=== PATIENT | male | born 1970 | race Caucasian/White ===

== ENCOUNTER 2017-04-21 08:50 | Emergency (ER) | payer BC, SELFPAY ==
[2017-04-21 09:13] VITALS: BP 124/90; PULSE 87; RESP 18; TEMP 36.9; O2SAT 98; BMI 29.0
--- NOTE | 2017-04-21 09:23 | HMH.EDUTC ---
[facility] [place] Clinical Impression: Gastroenteritis Disposition: Home, Self-Care Condition on Discharge: Fair Instructions: DI for Nausea -- Adult, Diarrhea, DI for Viral Gastroenteritis -- Adult Additional Instructions: Drink plenty of fluids Follow up with family doctor Return if needed Over the counter Immodium may help if diarrhea doesn't stop Take medication as prescribed Prescriptions: Ondansetron [Zofran 4mg ODT] 4 mg PO Q8H #10 tab.rapdis Referrals: Patricio Burgos MD [Primary Care Provider] - Time of Disposition: 09:46 Medical Decision Making - Medical Records Medical records reviewed: Yes: I reviewed the patient's medical records. Vital Signs: 04/21/17 09:13 Temperature 98.4 F Temperature Source Temporal Artery Scan Pulse Rate [Right] 87 Respiratory Rate 18 Blood Pressure [Right Arm] 124/90 Blood Pressure Mean [Right Arm] 101 Blood Pressure Source [Right Arm] Automatic Cuff Blood Pressure Position [Right Arm] Sitting 02 Sat by Pulse Oximetry 98 Oxygen Delivery Method Room Air - Beau Inquiry Pt receiving controlled substance: No Beau was queried for this patient: No [facility] [place] - General Stated complaint: rincon v/d chills Mode of Arrival: Ambulatory Source of Information: Patient Limitations: No Limitations Description of Symptoms (Recalled from Triage Doc. by RN): V/D, BODY ACHES X3 DAYS HEENT Symptoms (Recalled from RN notes): No Resp Symptoms (Recalled from RN notes): No Skin Symptoms (Recalled from RN notes): No MS Symptoms (Recalled from RN notes): No Functional Status (Recalled from RN notes): N - History of Present Illness Provider Complaint: Patient state that he has been having nausea vomiting and diarrhea State that at times he feels like something is draining down the back of his throat and upseting his stomach, State that he was worried that he may have the flu or something - Related Data Previous Rx's Medication Instructions Recorded Ondansetron [Zofran 4mg ODT] 4 mg PO Q8H #10 tab.rapdis 04/21/17 Allergies Allergy/AdvReac Type Severity Reaction Status Date / Time bupropion [From WELLBUTRIN] Allergy Mild Verified 04/21/17 09:17 - Worker's Comp Is this a Worker's Comp case?: No [facility] History I have reviewed the patient's past medical history: Yes - *Social History Alcohol Intake: never - Psychiatric History Expresses thoughts of harming self/others: None Suicide Plan Description: No Plan ROS Obtained: Yes All systems reviewed & no additional complaints - Constitutional Constitutional: Reports body ache, Reports chills - ENT Ears, Nose, Mouth, and Throat: Reports nasal congestion - Gastrointestinal Gastrointestingal: Reports: diarrhea, nausea, vomiting Physical Exam - General General appearance: alert, in no apparent distress - Expanded ENT Exam Nose exam: Present: sinus tenderness, other (slight tenderness noted frontal sinus) Nasal speculum exam: Bilateral: other (Reports clear to yellow drainage) Comment: Throat red irritated drainage noted, reports clear to yellow drainage from nose - Respiratory Respiratory exam: Present: normal lung sounds bilaterally. Absent: respiratory distress - Cardiovascular Cardiovascular exam: Present: regular rate, normal rhythm. Absent: JVD - Abdominal Exam Abdominal exam: Present: soft, normal bowel sounds. Absent: distention, tenderness, guarding - Neurological Exam Neurological exam: Present: alert, oriented X3
--- NOTE | 2017-04-21 09:36 | ED_ITS ---
[facility] [place] Impression: Gastroenteritis Disposition: Home, Self-Care Condition on Discharge: Fair Instructions: DI for Nausea -- Adult, Diarrhea, DI for Viral Gastroenteritis - - Adult Additional Instructions: Drink plenty of fluids Follow up with family doctor Return if needed Over the counter Immodium may help if diarrhea doesn't stop Take medication as prescribed Prescriptions: Ondansetron [Zofran 4mg ODT] 4 mg PO Q8H #10 tab.rapdis Referrals: Patricio Burgos MD [Primary Care Provider] - Time of Disposition: 09:46 Medical Decision Making - Medical Records Medical records reviewed: Yes: I reviewed the patient's medical records. Vital Signs: 04/21/17 09:13 Temperature 98.4 F Temperature Source Temporal Artery Scan Pulse Rate [Right] 87 Respiratory Rate 18 Blood Pressure [Right Arm] 124/90 Blood Pressure Mean [Right Arm] 101 Blood Pressure Source [Right Arm] Automatic Cuff Blood Pressure Position [Right Arm] Sitting 02 Sat by Pulse Oximetry 98 Oxygen Delivery Method Room Air - Beau Inquiry Pt receiving controlled substance: No Beau was queried for this patient: No [facility] [place] - General Stated complaint: rincon v/d chills Mode of Arrival: Ambulatory Source of Information: Patient Limitations: No Limitations Description of Symptoms (Recalled from Triage Doc. by RN): V/D, BODY ACHES X3 DAYS HEENT Symptoms (Recalled from RN notes): No Resp Symptoms (Recalled from RN notes): No Skin Symptoms (Recalled from RN notes): No MS Symptoms (Recalled from RN notes): No Functional Status (Recalled from RN notes): N - History of Present Illness Provider Complaint: Patient state that he has been having nausea vomiting and diarrhea State that at times he feels like something is draining down the back of his throat and upseting his stomach, State that he was worried that he may have the flu or something - Related Data Previous Rx's Medication Instructions Recorded Ondansetron [Zofran 4mg ODT] 4 mg PO Q8H #10 tab.rapdis 04/21/17 Allergies Allergy/AdvReac Type Severity Reaction Status Date / Time bupropion [From WELLBUTRIN] Allergy Mild Verified 04/21/17 09:17 - Worker's Comp Is this a Worker's Comp case?: No [facility] History I have reviewed the patient's past medical history: Yes - *Social History Alcohol Intake: never - Psychiatric History Expresses thoughts of harming self/others: None Suicide Plan Description: No Plan ROS Obtained: Yes All systems reviewed & no additional complaints - Constitutional Constitutional: Reports body ache, Reports chills - ENT Ears, Nose, Mouth, and Throat: Reports nasal congestion - Gastrointestinal Gastrointestingal: Reports: diarrhea, nausea, vomiting Physical Exam - General General appearance: alert, in no apparent distress - Expanded ENT Exam Nose exam: Present: sinus tenderness, other (slight tenderness noted frontal sinus) Nasal speculum exam: Bilateral: other (Reports clear to yellow drainage) Comment: Throat red irritated drainage noted, reports clear to yellow drainage from nose - Respiratory Respiratory exam: Present: normal lung sounds bilaterally. Absent: respiratory distress - Cardiovascular Cardiovascular exam: Present: regular rate, normal rhythm. Absent: JVD - Ab
[2017-04-21 09:44] LABS: UTC Influenza A Antigen Negative (Negative); UTC Influenza B Antigen Negative (Negative)
[2017-04-21 09:56] VITALS: BP 124/90; PULSE 87; RESP 18; TEMP 36.9
== END 2017-04-21 09:57 | disposition home or self-care (01) ==
PROVIDERS: Emergency Provider Nurse Practitioner; Family Provider Internal Medicine Adolescent Medicine; PCP Internal Medicine Adolescent Medicine
DX: K52.9 Noninfective gastroenteritis and colitis, unspecified (principal)
CPT/HCPCS: 87804; 99202

== ENCOUNTER 2017-05-17 09:32 | Emergency (ER) | payer BC, SELFPAY ==
[2017-05-17 09:46] VITALS: BP 135/96; PULSE 74; RESP 20; TEMP 37.1; O2SAT 98; BMI 29.8
--- NOTE | 2017-05-17 09:55 | HMH.EDUTC ---
[facility] – [place] Disposition Clinical Impression: Headache Qualifiers: Headache type: other headache syndrome Qualified Code(s): G44.89 - Other headache syndrome Disposition: Home, Self-Care Condition on Discharge: Good Additional Instructions: Increase fluids,eliceo diet Wrist Get a refill of your cetirizine Tylenol or ibuprofen as needed for headache Symptoms worsen or do not improve return or be seen in the ER Follow-up with primary care this week if symptoms do not improve Referrals: Patricio Burgos MD [Primary Care Provider] - Forms: Work/School Release Time of Disposition: 10:01 Medical Decision Making Vital Signs: 05/17/17 09:46 Temperature 98.8 F Temperature Source Temporal Artery Scan Pulse Rate [Brachial] 74 Respiratory Rate 20 Blood Pressure [Right Arm] 135/96 Blood Pressure Mean [Right Arm] 109 Blood Pressure Source [Right Arm] Automatic Cuff Blood Pressure Position [Right Arm] Sitting 02 Sat by Pulse Oximetry 98 Oxygen Delivery Method Room Air - Beau Inquiry Pt receiving controlled substance: No [facility] [place] HPI - General Chief complaint: Headache Stated complaint: rincon vomiting mucus Time Seen by Provider: 05/17/17 09:55 Mode of Arrival: EMS Source of Information: Patient Limitations: No Limitations Description of Symptoms (Recalled from Triage Doc. by RN): ALLERGIES, V/H/A HEENT Symptoms (Recalled from RN notes): Yes Resp Symptoms (Recalled from RN notes): No Skin Symptoms (Recalled from RN notes): No MS Symptoms (Recalled from RN notes): No Functional Status (Recalled from RN notes): NA - History of Present Illness Provider Complaint: A 46-year-old male presents today for headache, vomiting ?2 today. Patient states he normally takes cetirizine but they fell out of the cabinet and went down the sink. Patient states he has history of allergies and woke up today with a headache and has vomited up clear mucus twice today. Called into work and was informed he had to be seen at the [facility]. - Related Data Previous Rx's Medication Instructions Recorded Ondansetron [Zofran 4mg ODT] 4 mg PO Q8H #10 tab.rapdis 04/21/17 Allergies Allergy/AdvReac Type Severity Reaction Status Date / Time bupropion [From WELLBUTRIN] Allergy Mild Verified 04/21/17 09:17 - Worker's Comp Is this a Worker's Comp case?: No [facility] History I have reviewed the patient's past medical history: Yes - Social History Alcohol Intake: never - Psychiatric History Expresses thoughts of harming self/others: None Suicide Plan Description: No Plan ROS Obtained: Yes All systems reviewed & no additional complaints - Constitutional Constitutional: Reports as per HPI, Denies chills, Denies fever(s), Reports headache(s) - Eyes Eyes: Reports system reviewed and no additional complaints, except as docu - ENT Ears, Nose, Mouth, and Throat: Reports system reviewed and no additional complaints, except as docu, Reports headache(s), Denies nasal obstruction, Reports post nasal drip, Denies sinus pressure, Denies sore throat, Denies vertigo/dizziness - Cardiovascular Cardiovascular: Reports system reviewed and no additional complaints, except as docu, Denies chest pain with activity - Respiratory Respiratory: Yes system reviewed and no additional complaints, except as docu, No chest congestion, No cough - Gastrointestinal Gastrointestingal: Reports: system reviewed and no additional complaints, except as docu, as per HPI, vomiting. Denies: coffee ground emesis, heartburn, vomiting blood - Musculoskeletal Musculoskeletal: Reports system reviewed and no additional complaints, except as docu - Integumentary/Breasts Skin/Breast: Reports system reviewed and no additional complaints, except as docu - Neurologic Neurologic: Reports system reviewed and no additional complaints, except as docu, Denies tingling, Denies vertigo, Denies weakness - Endocrine Endocrine: Reports system reviewed and no additional complaints, ex
--- NOTE | 2017-05-17 09:58 | ED_ITS ---
[facility] [place] Clinical Impression: Headache Qualifiers: Headache type: other headache syndrome Qualified Code(s): G44.89 - Other headache syndrome Disposition: Home, Self-Care Condition on Discharge: Good Additional Instructions: Increase fluids,eliceo diet Wrist Get a refill of your cetirizine Tylenol or ibuprofen as needed for headache Symptoms worsen or do not improve return or be seen in the ER Follow-up with primary care this week if symptoms do not improve Referrals: Patricio Burgos MD [Primary Care Provider] - Forms: Work/School Release Time of Disposition: 10:01 Medical Decision Making Vital Signs: 05/17/17 09:46 Temperature 98.8 F Temperature Source Temporal Artery Scan Pulse Rate [Brachial] 74 Respiratory Rate 20 Blood Pressure [Right Arm] 135/96 Blood Pressure Mean [Right Arm] 109 Blood Pressure Source [Right Arm] Automatic Cuff Blood Pressure Position [Right Arm] Sitting 02 Sat by Pulse Oximetry 98 Oxygen Delivery Method Room Air - Beau Inquiry Pt receiving controlled substance: No [facility] [place] - General Chief complaint: Headache Stated complaint: rincon vomiting mucus Time Seen by Provider: 05/17/17 09:55 Mode of Arrival: EMS Source of Information: Patient Limitations: No Limitations Description of Symptoms (Recalled from Triage Doc. by RN): ALLERGIES, V/H/A HEENT Symptoms (Recalled from RN notes): Yes Resp Symptoms (Recalled from RN notes): No Skin Symptoms (Recalled from RN notes): No MS Symptoms (Recalled from RN notes): No Functional Status (Recalled from RN notes): NA - History of Present Illness Provider Complaint: A 46-year-old male presents today for headache, vomiting ?2 today. Patient states he normally takes cetirizine but they fell out of the cabinet and went down the sink. Patient states he has history of allergies and woke up today with a headache and has vomited up clear mucus twice today. Called into work and was informed he had to be seen at the [facility]. - Related Data Previous Rx's Medication Instructions Recorded Ondansetron [Zofran 4mg ODT] 4 mg PO Q8H #10 tab.rapdis 04/21/17 Allergies Allergy/AdvReac Type Severity Reaction Status Date / Time bupropion [From WELLBUTRIN] Allergy Mild Verified 04/21/17 09:17 - Worker's Comp Is this a Worker's Comp case?: No [facility] History I have reviewed the patient's past medical history: Yes - Social History Alcohol Intake: never - Psychiatric History Expresses thoughts of harming self/others: None Suicide Plan Description: No Plan ROS Obtained: Yes All systems reviewed & no additional complaints - Constitutional Constitutional: Reports as per HPI, Denies chills, Denies fever(s), Reports headache(s) - Eyes Eyes: Reports system reviewed and no additional complaints, except as docu - ENT Ears, Nose, Mouth, and Throat: Reports system reviewed and no additional complaints, except as docu, Reports headache(s), Denies nasal obstruction, Reports post nasal drip, Denies sinus pressure, Denies sore throat, Denies vertigo/dizziness - Cardiovascular Cardiovascular: Reports system reviewed and no additional complaints, except as docu, Denies chest pain with activity - Respiratory Respiratory: Yes system reviewed and no additional complaints, except as docu, No chest congestion, No cough - Gastrointestinal
[2017-05-17 10:05] VITALS: BP 135/96; PULSE 74; RESP 20; TEMP 37.1; O2SAT 98
== END 2017-05-17 10:06 | disposition home or self-care (01) ==
PROVIDERS: Emergency Provider Nurse Practitioner Family; Family Provider Internal Medicine Adolescent Medicine; PCP Internal Medicine Adolescent Medicine
DX: G44.89 Other headache syndrome (principal); Z88.8 Allergy status to other drugs, medicaments and biological substances
CPT/HCPCS: 99202

== ENCOUNTER → 2019-03-09 16:33 | Outpatient (CLI) | payer BC, SELFPAY ==
[2019-03-09 16:54] LABS: Basophils # 0.1 K/mm3 (0-0.2); Basophils % 0.6 % (0.1-2.0); Eosinophils # 0.3 K/mm3 (0.0-0.4); Eosinophils % 2.8 % (0.1-12.0); Hemoglobin 15.1 g/dL (14.1-18.0); Lymphocytes # 2.2 K/mm3 (0.7-4.5); Lymphocytes % 18.5 % (10-50); Mean Corpuscular HGB Conc 32.8 g/dL (31.8-35.4); Mean Corpuscular Hemoglobin 29.9 pg (27.0-31.2); Mean Corpuscular Volume 91.1 fl (80-94); Monocytes # 0.5 K/mm3 (0.1-1.0); Monocytes % 4.3 % (1.7-9.3); Neutrophils # 8.8 K/mm3 (1.8-7.8); Neutrophils % 73.9 % (37.0-80.0); Platelet Count 305 K/mm3 (142-424); Red Blood Count 5.05 M/mm3 (4.60-6.20); Red Cell Distribution Width 12.9 % (11.5-17.5); White Blood Count 11.9 K/mm3 (4.8-10.8)
[2019-03-09 18:04] LABS: Hemoglobin A1C 5.9 % (0.0-7.0)
[2019-03-09 19:18] LABS: Alanine Aminotransferase 35 U/L (12-78); Albumin/Globulin Ratio 1.1 (1.1-1.8); Alkaline Phosphatase 115 U/L (46-116); Anion Gap 14.5 mEq/L (5-15); Aspartate Amino Transferase 19 U/L (15-37); Bilirubin,Total 0.3 mg/dL (0.2-1.0); Blood Urea Nitrogen 12 mg/dL (7-18); Calcium 10.2 mg/dL (8.5-10.1); Carbon Dioxide 31 mmol/L (21.0-32.0); Chloride 101 mmol/L (98-107); Estimated Glomerular Filt Rate 80 ml/min (>60); GFR (African American) 97 ML/MIN (>60); Globulin 3.7 gm/dl (1.3-3.2); Glucose 77 mg/dL (74-106); Potassium 4.5 mmoL/L (3.5-5.1); Sodium 142 mmol/L (136-145); Thyroid Stimulating Hormone 2.44 uIU/ml (0.358-3.740); Total Protein,Serum 7.7 gm/dL (6.4-8.2)
[2019-03-11 08:32] LABS: Iron 60 ug/dL (38-169); UIBC 319 ug/dL (111-343)
[2019-03-11 09:58] LABS: Iron Saturation 16 % (15-55); Vitamin B12 536 pg/mL (232-1245); Vitamin D 25 Hydroxy 10.4 ng/mL (30.0-100.0)
[2019-03-13 03:02] LABS: Testosterone, Total, LC/MS 214.2 ng/dL (264.0-916.0); Testosterone,Free 5.8 pg/mL (6.8-21.5)
== END ==
PROVIDERS: Visit Provider Nurse Practitioner Psychiatric/Mental Health
DX: Z00.00 Encounter for general adult medical examination without abnormal findings (principal); Z79.899 Other long term (current) drug therapy; R53.83 Other fatigue; E55.9 Vitamin D deficiency, unspecified
CPT/HCPCS: 36415; 80053; 82607; 82652; 83036; 83540; 83550; 84402; 84403; 84443; 85025

== ENCOUNTER → 2019-04-14 16:31 | Outpatient (CLI) | payer BC, SELFPAY ==
[2019-04-14 18:04] LABS: Blood Urea Nitrogen 16 mg/dL (7-18); Creatinine,Serum 1.03 mg/dL (0.70-1.30); Estimated Glomerular Filt Rate 77 ml/min (>60); GFR (African American) 94 ML/MIN (>60)
== END ==
PROVIDERS: Visit Provider Nurse Practitioner Family
DX: R10.32 Left lower quadrant pain (principal)
CPT/HCPCS: 36415; 82565; 84520

== ENCOUNTER → 2019-04-18 12:21 | Outpatient (CLI) | payer BC, SELFPAY ==
--- NOTE | 2019-04-18 12:32 | CT_ITS ---
PROCEDURE: CT ABDOMEN PELVIS WO/W CON CLINICAL INDICATION: LLQ PAIN Lower abdominal pain, left lower quadrant pain COMPARISON: ABDPELW/O CT ABD PELVIS W/O CONTRAST from 06/20/2012 TECHNIQUE: IV Contrast: 75ML OPTIRAY 350 Oral Contrast 450ml Redicat Axial images obtained with sagittal and coronal reformats. All CT scans at the facility use one or more dose reduction, viz: automated exposure control, ma/kV adjustment per patient size (including targeted exams where dose is matched to indication, i.e. head), or iterative reconstruction technique. FINDINGS: LOWER THORAX: Mild atelectatic changes are present in the right lower lobe. Coronary artery calcifications present. ABDOMEN & PELVIS: There is diffuse fatty liver infiltration. The the gallbladder, spleen, adrenal glands, and pancreas have an unremarkable appearance. There is a small umbilical hernia containing. No evidence of appendicitis. No intestinal obstruction or free air. No renal or ureteral calculi. There is diverticulosis of the descending colon but no evidence of diverticulitis. Postsurgical changes are present in the left lower quadrant with surgical clips and some minimal scarring in this area. No abdominal wall hernia evident at this region. There are couple small lymph nodes in this region at approximately 1 cm each. No pelvic mass or abnormal fluid collection. There are degenerative changes in lumbar spine. IMPRESSION: 1. No acute finding. 2. Postsurgical changes in the left lower quadrant and in the left inguinal area with a couple small lymph nodes in the inguinal region on the left. 3. Small umbilical hernia containing fat. The no recurrence inguinal hernia evident. Dictated by: Ej Tran MD 04/19/2019 11:10 Electronically signed by Ej Tran MD in [place] 04/19/2019 11:10
== END ==
LOC: RAD 12:22
PROVIDERS: PCP Internal Medicine Adolescent Medicine; Visit Provider Internal Medicine Adolescent Medicine
DX: R10.32 Left lower quadrant pain (principal)
CPT/HCPCS: 74178; Q9967

== ENCOUNTER → 2019-07-03 13:35 | Outpatient (CLI) | payer BC, SELFPAY ==
--- NOTE | 2019-07-03 13:42 | XR_ITS ---
PROCEDURE: XR KNEE LT 4V CLINICAL INDICATION: knee pain COMPARISON: No exams were available for comparison FINDINGS: No fracture or dislocation. No lytic or blastic change. There is normal mineralization. There are minimal osteoarthritic changes involving all 3 compartments. No fracture or dislocation. No lytic or blastic change. Other findings:None. IMPRESSION: Minimal osteoarthritis Dictated by: Ej Tran MD 07/03/2019 14:21 Electronically signed by Ej Tran MD in [place] 07/03/2019 14:21
== END ==
LOC: RAD 13:37
PROVIDERS: PCP Nurse Practitioner Family; Visit Provider Orthopaedic Surgery
DX: M25.562 Pain in left knee (principal)
CPT/HCPCS: 73564

== ENCOUNTER → 2019-07-07 10:56 | Outpatient (CLI) | payer BC, SELFPAY ==
--- NOTE | 2019-07-07 10:56 | MR_ITS ---
PROCEDURE: MR KNEE LT WO CON CLINICAL INDICATION: left knee pain Posterior left knee pain, twisting injury with pain and popping noise, lateral pain COMPARISON: XR KNEE LT 4V from 07/03/2019 TECHNIQUE: Routine multiplanar multi echo sequences are performed without gadolinium enhancement. FINDINGS: the cruciate ligaments appear intact as do the collateral ligaments, patellar tendon, and quadriceps tendon. There does appear to be a radial tear of the posterior horn of the medial meniscus. This is along the lateral margin of the posterior horn of the medial meniscus and is best seen on series 12, image 22. There is also some bone marrow edema of the proximal tibia at this area consistent with bone bruise. There is a small knee joint effusion and there are mild osteoarthritic changes of all 3 compartments. There is some mild thinning of the patellar cartilage. IMPRESSION: There does appear to be a nondisplaced radial tear involving the posterior horn of the medial meniscus along its lateral margin associated with a bone bruise of the proximal tibia at this region. Mild osteoarthritis with small knee joint effusion Dictated by: Ej Tran MD 07/07/2019 15:20 Electronically signed by Ej Tran MD in [place] 07/07/2019 15:20
== END ==
LOC: RAD 10:56
PROVIDERS: PCP Nurse Practitioner Family; Visit Provider Orthopaedic Surgery
DX: M25.562 Pain in left knee (principal)
CPT/HCPCS: 73721

== ENCOUNTER → 2019-07-10 15:03 | Outpatient (CLI) | payer BC, SELFPAY ==
[2019-07-10 15:25] LABS: Basophils # 0.1 K/mm3 (0-0.2); Basophils % 1.1 % (0.1-2.0); Eosinophils # 0.1 K/mm3 (0.0-0.4); Eosinophils % 1.8 % (0.1-12.0); Hematocrit 45.2 % (42.0-52.0); Hemoglobin 14.6 g/dL (14.1-18.0); Lymphocytes # 1.3 K/mm3 (0.7-4.5); Lymphocytes % 17.5 % (10-50); Mean Corpuscular HGB Conc 32.3 g/dL (31.8-35.4); Mean Corpuscular Hemoglobin 29.1 pg (27.0-31.2); Mean Corpuscular Volume 90.3 fl (80-94); Mean Platelet Volume 7.1 fl (7.4-10.4); Monocytes # 0.3 K/mm3 (0.1-1.0); Monocytes % 3.3 % (1.7-9.3); Neutrophils # 5.9 K/mm3 (1.8-7.8); Neutrophils % 76.4 % (37.0-80.0); Platelet Count 307 K/mm3 (142-424); Red Blood Count 5.01 M/mm3 (4.60-6.20); Red Cell Distribution Width 13.5 % (11.5-17.5); White Blood Count 7.7 K/mm3 (4.8-10.8)
[2019-07-10 16:48] LABS: Chloride 98 mmol/L (98-107); Potassium 4.4 mmoL/L (3.5-5.1); Sodium 139 mmol/L (136-145)
[2019-07-10 16:51] LABS: Alanine Aminotransferase 28 U/L (12-78); Albumin Level 4.5 g/dl (3.5-5.0); Albumin/Globulin Ratio 1.5 (1.1-1.8); Alkaline Phosphatase 88 U/L (38-126); Anion Gap 13.4 mEq/L (5-15); Aspartate Amino Transferase 27 U/L (17-59); Bilirubin,Total 0.2 mg/dl (0.2-1.3); Blood Urea Nitrogen 12 mg/dl (9-20); Calcium 9.9 mg/dl (8.4-10.2); Carbon Dioxide 32 mmol/L (22.0-30.0); Estimated Glomerular Filt Rate 90 ml/min (>60); GFR (African American) 109 ML/MIN (>60); Globulin 3.1 g/dL (1.3-3.2); Glucose 102 mg/dl (74-100); Total Protein,Serum 7.6 g/dl (6.3-8.2)
== END ==
PROVIDERS: Visit Provider Orthopaedic Surgery
DX: Z01.818 Encounter for other preprocedural examination (principal)
CPT/HCPCS: 36415; 80053; 85025

== ENCOUNTER → 2019-07-16 10:55 | Outpatient (CLI) | payer BC, SELFPAY ==
[2019-07-17 16:30] LABS: Covid-19 Nasal PCR Sendout UK Not Detected
== END ==
PROVIDERS: PCP Internal Medicine Adolescent Medicine; Visit Provider Orthopaedic Surgery
DX: Z01.818 Encounter for other preprocedural examination (principal); M23.204 Derangement of unspecified medial meniscus due to old tear or injury, left knee; M17.12 Unilateral primary osteoarthritis, left knee
CPT/HCPCS: U0003

== ENCOUNTER 2019-07-18 06:03 | Day surgery (SDC) | payer BC, SELFPAY ==
--- NOTE | 2019-07-13 12:46 | SUR.PREOP ---
07/13/2019 @ 9684--PHONE CALL MADE TO PATIENT. PATIENT UNDERSTANDS THAT LAB WORK AND COVID TESTING NEEDS TO BE COMPLETED @ 1100 ON 07/16/2019. PATIENT UNDERSTANDS IF LAB WORK AND COVID-19 TESTS ARE NOT COMPLETED BY 12PM ON THAT DATE, THE SURGERY SCHEDULED WILL BE CANCELLED AND RESCHEDULED FOR ANOTHER TIME.
[2019-07-17 13:16] VITALS: BMI 32.5
[2019-07-18] VITALS (14 sets, daily range): BP systolic 115–148; BP diastolic 66–97; PULSE 77–88; RESP 14–20; TEMP 36.4–43; O2SAT 91–100
--- NOTE | 2019-07-18 06:48 | HMH.ANESCL ---
[facility] Anesthesia Checklist - Structural Data Admitted From: Home Planned Operative Procedure/s: l knee arthro Consent for Planned Operative Procedure(s) Verified: Yes - Additional verifications Anesthesia Reactions: No Hx Blood Transfusions: No Blood Transfusion Reaction: No - Airway Assessment C-Spine Mobility Assessed: Yes TMJ Mobility Assessed: Yes Dentition: Dentures-good fit - Neurological Assessment Level of Consciousness: Awake, Alert, Appropriate - Anesthesia Plan Anesthesia Risk discussed: Yes Anesthesia Plan: Verified ASA Class: II Anesthesia Type: General w/block [facility] History I have reviewed the patient's past medical history: Yes Medical History: Denies:: Cancer, Diabetes Mellitus Type 1, Diabetes Mellitus Type 2, Internal Pacemaker, MRSA, Seizures *Have you ever received a pneumonia vaccine?: No *Have you received a flu vaccine this season?: No Other Medical History: Denies: Blood Transfusion Reaction Anesthesia experience/problems:: none Laterality Cases: Left: Arthroscopy Knee Other Surgeries: Yes: Colonoscopy, Colon Resection, Hernia Repair. No: Pacemaker Amputation: No Fractures: Yes - *Social History Educational Level: Completed GED/General Educational Development Smoking Status: Never smoker Alcohol Intake: never Substance Use Type: marijuana *Occupational Status:: employed Housing: house Household Members: spouse, family *Travel in the last 8 weeks: None Family Hx:: No significant family history
--- NOTE | 2019-07-18 10:12 | P.PN_ITS ---
[facility] Anesthesia Record Part I Intake, IV Amount: 1,100 Estimated blood loss (mL): 0 Urine output (mL): 0 Blood Products used (#): none Blood Pressure: 136/93 SaO2: 91 Pulse Rate: 88 Respiratory Rate: 20 Temperature: 98.1 F Patient is:: Drowsy, Mask O2, Stable Stable to PACU at:: 10:07
--- NOTE | 2019-07-18 10:54 | HMH.OPNOTE ---
Date of procedure: 07/18/19 Pre-op Diagnosis:: L knee medial meniscus tear, mild degenerative joint disease Post-op Diagnosis:: L knee medial meniscus tear, mild-moderate degenerative joint disease, medial plica Procedure performed:: L knee arthroscopy with: 1- medial plica excision 2- partial medial menisectomy 3- chondroplasty medial femoral condyle + lateral femoral condyle Surgeon:: Leslye Dunham MD Dye Colorist Formulator(s):: Jose Connor ANESTHESIA TECH:: Patricio Wisdom Anesthesia: GETA, regional (femoral nerve block) Estimated blood loss (mL): 10 Clinical Note:: 49-year-old gentleman with a history of acute on chronic left knee pain. He has had chronic, intermittent, dull pain in this knee for years, predominantly over the medial and anterior aspects of the knee. He was standing upright about 4 weeks ago when he turned to walk somewhere else; the twisting position with the foot planted produced a pop in the left knee with immediate pain. He did have a surgery on this knee in the past but is unsure where or when it was done, or what exactly was done; this appears to have been an arthroscopy. Minimal examination was tolerated on his first office visit and weightbearing was very painful. MRI revealed medial meniscus tear in addition to mild tricompartmental DJD of the knee. Over the following few weeks his pain improved enough that weightbearing was possible in a knee immobilizer but he still required crutches. I discussed treatment options with the patient including both operative and nonoperative therapies. I discussed the natural history of meniscus tears as well as degenerative joint disease of the knee. The patient does have some mild degenerative changes, and I explained that any pain from this would not likely be improved by arthroscopy. I feel that the pain from his meniscus tear may be improved with an arthroscopic procedure, but I have cautioned him that he may have continued pain from his bone marrow lesion on MRI as well as existing chondromalacia. He would like to seek treatment that puts him back at work and full activity quicker and he would like to proceed with arthroscopy. He feels that nonoperative treatment is unlikely to give him a satisfactory long-term outcome and would like to proceed with arthroscopy as soon as possible. He vocalized an understanding of the risk of still having persistent pain from degenerative changes and is willing to take that risk. We discussed the risks of surgery, including bleeding, infection, neurovascular injury, chondral/bone injury, persistence of his pain, progression of his pain necessitating continued surgical treatment in the future, and risks of anesthesia. The patient vocalized understanding of the risks of the procedure and informed consent was obtained. 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 Consent was reviewed and confirmed with the patient, all questions answered. Pre-operative laboratory testing was reviewed and found to be within acceptable limits. Femoral nerve block was requested by the patient, which was performed by anesthesia in pre-op holding. The patient was then taken to the OR and placed supine on the operative table. 2 g Ancef were infused and general anesthesia induced. The left leg was then placed in an arthroscopic leg ambriz with a nonsterile tourniquet on the upper thigh. The leg was then prepped and draped in the usual sterile fashion for knee arthroscopy. Timeout was performed, identifying the correct patient, correct procedure, and co
--- NOTE | 2019-07-18 13:07 | HMH.ANESII ---
[facility] Anesthesia Record Part II Discharge Time: 10:37 Destination: Surgical Day Care (OP Surgery) PACU nurse assessment reviewed?: Yes Patient Condition:: Good Anesthesia Complications:: None Swallowing reflex intact?: Yes Cyanosis?: No Blood Pressure: 119/66 Pulse Rate: 77 Temperature: 97.5 F Mental Status: Alert & Oriented Pain level:: 2 Nausea and/or vomitting:: None Intake, IV Amount: 20
== END 2019-07-18 11:58 | disposition home or self-care (01) ==
LOC: OR 06:05
PROVIDERS: PCP Internal Medicine Adolescent Medicine; Visit Provider Orthopaedic Surgery
PROC: (CPT 29870; principal; 2019-07-18 07:30)
DX: M23.222 Derangement of posterior horn of medial meniscus due to old tear or injury, left knee (principal); M67.52 Plica syndrome, left knee; M94.262 Chondromalacia, left knee; M17.12 Unilateral primary osteoarthritis, left knee
CPT/HCPCS: 29881; 29879; 96374; J0131; J2405

== ENCOUNTER → 2019-09-22 14:25 | Outpatient (CLI) | payer BC, SELFPAY ==
--- NOTE | 2019-09-22 14:26 | XR_ITS ---
PROCEDURE: XR KNEE LT 4V CLINICAL INDICATION: lt knee pain COMPARISON: XR KNEE LT 4V from 07/03/2019 FINDINGS: No fracture or dislocation. No lytic or blastic change. There is normal mineralization. There are mild tricompartmental osteoarthritic changes. Increased density is present in the suprapatellar region consistent with knee joint effusion. There are some mild periarticular osteopenic changes in the distal femur. Other findings:None. IMPRESSION: Osteoarthritis with knee joint effusion Dictated by: Ej Tran MD 09/22/2019 16:36 Electronically signed by Ej Tran MD in [place] 09/22/2019 16:36
== END ==
PROVIDERS: PCP Internal Medicine Adolescent Medicine; Visit Provider Orthopaedic Surgery
DX: M17.12 Unilateral primary osteoarthritis, left knee (principal); S83.242A Other tear of medial meniscus, current injury, left knee, initial encounter
CPT/HCPCS: 73564

== ENCOUNTER 2019-10-20 10:00 | Outpatient (RCR) | payer BC, SELFPAY ==
--- NOTE | 2019-08-02 13:49 | HMH.PTOPEV ---
PT Outpatient Evaluation Rehab PT Outpatient Evaluation Start: 08/02/19 13:39 Freq: Status: Active Protocol: Document 08/02/19 13:39 RANDYANJUM (Rec: 08/02/19 13:49 ARVIND [id number]) Electronically Signed By Tez Higgins, PT 08/02/19 13:39 Outpatient Therapy Subjective History Subjective History Patient is a 49 year old male presenting to outpatient PT with reports of L post- surgical knee pain S/P L knee partial medial meniscectomy and meidial plica excision with MFC/LFC chondroplasty. Sx date 07/18/19. Initial injury occurred 07/01 as a closed chain twisting injury. Comorbidities include hx of colon resection and hernia. Chief Complaint Pain,Stiff,Swelling Symptom Type Ache,Sharp Symptoms Relieved By Rest/Positioning,Ice, Prescription Meds Prior Functional Limitations None Current Functional Limitations Housework,Sleeping,Standing, Sitting,Squatting,Recreation Activity,Walking,Stairs, Balance Symptom Description Constant and Continuous Level of pain today (0-10) 7 Pain scale - at its best (0-10) 7 Pain scale - at its worst (0-10) 7 Hip/Knee Eval Gait Observation General Gait Pattern Observation Antalgic Gait,Decrease Weight Bear (L) Assistive Device Assistive Devices Axillary Crutches Palpation Tenderness left Knee Palpation Finding Tenderness Knee Palpation Overall Comment quad tendon, medial joint line 3/4 MMT Hip Flexion Strength Grade 4- Good- Hip Abduction Strength Grade 4- Good- Hip Adduction Strength Grade 4- Good- Hip Extension Strength Grade 4- Good- Hip External Rotation Strength Grade 3+ Fair+ Hip Internal Rotation Strength Grade 3+ Fair+ Knee Extension Strength Grade 3+ Fair+ Knee Flexion Strength Grade 4- Good- ROM Hip ROM Reason Not Measured Within Functional Limits Knee Extension Active Range of Motion ( 98 degrees) Knee Flexion Active Range of Motion ( -15 degrees) Special Tests Knee Valgus Stress Test Negative Left Knee Varus Stress Test Negative Left Outpatient Therapy Assessment Impairments Problems/Impairmments Palpation Tenderness,Impaired Range of Motion,Impaired Strength,Impaired Gait Pattern
--- NOTE | 2019-09-05 16:54 | HMH.RHREAS ---
Rehab Reassessment Rehab OP Re-assessment Start: 09/05/19 16:20 Freq: Status: Active Protocol: Document 09/05/19 16:21 ARVIND (Rec: 09/05/19 16:25 ARVIND [id number]) Electronically Signed By Tez Higgins, PT 09/05/19 16:21 Rehab Re-assessment Subjective Subjective Pt reports 45% improvement since start of care. Objective Objective Notes AROM: L knee flx 125; ext -5 MMT: L knee flx 4+/5; ext 4/5; hip flx4/5; hip abd4/5; hip add4/5; hip ext4/5; hip ER4+/5 ; hip IR4/5 Pain: 5/10 at worst over past week Neuro: WNL Special tests: - Assessment Progress Assessment Progressing as Expected Assessment Notes Pt progressing well with Rx. AROM nearly WNL. He continues to require verbal and tactile cues to achieve full TKE with ambulation. Compliance with HEP noted. He continues to require 1 axillary crutch with ambulation secondary to L knee instability. ROM, pain and strength limitations continue to contribute to functional limitations with all standing and ambulatory activity. Patient goals met STG's Goals Not Met LTG's Revised Goals NA Plan Plan Continue with current POC. Frequency of Therapy 15 Duration of therapy 1 Time and Billing Re-Eval Time 15 Re-Eval Billing Units 1 PHYSICIAN CERTIFICATION: I certify the specified therapy services for Kurt Rhodes are required, authorized, and reviewed every 30 days.
--- NOTE | 2019-10-05 14:19 | HMH.RHREAS ---
Rehab Reassessment Rehab OP Re-assessment Start: 09/05/19 16:20 Freq: Status: Active Protocol: Document 10/05/19 14:08 ARVIND (Rec: 10/05/19 14:19 ARVIND [id number]) Electronically Signed By Tez Higgins, PT 10/05/19 14:08 Rehab Re-assessment Subjective Subjective Patient reports 80% improvement since start of care. Objective Objective Notes AROM: L knee flx 125; ext -5; R flx 136; ext 0 MMT: WNL except for L knee hip ext 4+/5 hip add 4+/5; quad 4 +/5 ER/IR 4+/5 Neuro: WNL Pain: 3/10 today; 5/10 at worst over past week Assessment Progress Assessment Progressing as Expected Assessment Notes Pt has been progressing well since recent round of injections. He continues to present with significant gait abnormality dec stance time of LLE. AROM continues to improve. Strength/mobility deficits continue to cause difficlty with all standing/ ambulatory activities resulting in functional limitations with household, recreational and work related activities. Patient goals met STG's; LTG 1, 4,5,6 Goals Not Met LTG 2,3,7,8,9 Revised Goals NA Plan Plan Continue with POC Frequency of Therapy 2x/week Duration of therapy 2 Time and Billing Re-Eval Time 15 Re-Eval Billing Units 1 PHYSICIAN CERTIFICATION: I certify the specified therapy services for Kurt Rhodes are required, authorized, and reviewed every 30 days.
== END 2019-10-20 10:05 | disposition home or self-care (01) ==
LOC: PT 10:00
PROVIDERS: PCP Internal Medicine Adolescent Medicine; Visit Provider Orthopaedic Surgery
DX: M23.204 Derangement of unspecified medial meniscus due to old tear or injury, left knee (principal); M17.12 Unilateral primary osteoarthritis, left knee
CPT/HCPCS: 97010; 97014; 97016; 97033; 97110; 97140; 97163; 97164; G0283

== ENCOUNTER → 2020-10-10 10:19 | Outpatient (CLI) | payer BC, SELFPAY ==
[2020-10-10 10:48] LABS: Basophils # 0.1 K/mm3 (0-0.2); Basophils % 0.7 % (0.1-2.0); Eosinophils # 0.1 K/mm3 (0.0-0.4); Eosinophils % 1.4 % (0.1-12.0); Hematocrit 44.7 % (42.0-52.0); Hemoglobin 14.3 g/dL (14.1-18.0); Lymphocytes # 2.1 K/mm3 (0.7-4.5); Lymphocytes % 20.7 % (10-50); Mean Corpuscular Hemoglobin 30.5 pg (27.0-31.2); Mean Corpuscular Volume 95.3 fl (80-94); Mean Platelet Volume 6.7 fl (7.4-10.4); Monocytes # 0.4 K/mm3 (0.1-1.0); Monocytes % 3.9 % (1.7-9.3); Neutrophils # 7.4 K/mm3 (1.8-7.8); Neutrophils % 73.4 % (37.0-80.0); Platelet Count 264 K/mm3 (142-424); Red Blood Count 4.69 M/mm3 (4.60-6.20); Red Cell Distribution Width 12.6 % (11.5-17.5); White Blood Count 10.1 K/mm3 (4.8-10.8)
[2020-10-10 11:10] LABS: Alanine Aminotransferase 17 U/L (12-78); Albumin Level 4.5 g/dl (3.5-5.0); Albumin/Globulin Ratio 1.6 (1.1-1.8); Alkaline Phosphatase 102 U/L (38-126); Anion Gap 11.2 mEq/L (5-15); Aspartate Amino Transferase 20 U/L (17-59); Bilirubin,Total 0.5 mg/dl (0.2-1.3); Blood Urea Nitrogen 12 mg/dl (9-20); Calcium 9.2 mg/dl (8.4-10.2); Carbon Dioxide 33 mmol/L (22.0-30.0); Chloride 100 mmol/L (98-107); Chol/HDL Ratio 4.2 (1-3.5); Cholesterol 217 mg/dl (140-200); Estimated Glomerular Filt Rate 90 ml/min (>60); GFR (African American) 109 ML/MIN (>60); Globulin 2.9 g/dL (1.3-3.2); Glucose 100 mg/dl (74-100); HDL Cholesterol 52 mg/dl (40-60); Potassium 4.2 mmoL/L (3.5-5.1); Sodium 140 mmol/L (136-145); Total Protein,Serum 7.4 g/dl (6.3-8.2); Triglycerides 112 mg/dl (30-150); VLDL Cholesterol 22 mg/dL (0-40)
[2020-10-10 11:24] LABS: Triiodothryronine (T3) Uptake 30 % (23.5-40.5)
[2020-10-10 11:25] LABS: Free Thyroxine Index 3.6 ug/dL (5.93-13.13); T4 (Thyroxine) 12.1 ug/dl (5.53-11.0)
[2020-10-10 11:27] LABS: 25-OH Vitamin D, Total 14.6 ng/mL (30-100)
[2020-10-10 11:38] LABS: Thyroid Stimulating Hormone 0.92 uIU/mL (0.465-4.68)
[2020-10-10 12:00] LABS: Vitamin B12 469 pg/mL (239-931)
== END ==
PROVIDERS: Visit Provider Internal Medicine Adolescent Medicine
DX: M17.0 Bilateral primary osteoarthritis of knee (principal); M15.0 Primary generalized (osteo)arthritis; E55.9 Vitamin D deficiency, unspecified; R63.4 Abnormal weight loss; Z86.39 Personal history of other endocrine, nutritional and metabolic disease; Z79.899 Other long term (current) drug therapy
CPT/HCPCS: 36415; 80053; 80061; 82306; 82607; 84436; 84443; 84479; 85025

== ENCOUNTER → 2020-11-26 13:57 | Outpatient (POV) | payer BC, SELFPAY | PROVIDERS: Visit Provider Dermatology | DX: Z00.00 Encounter for general adult medical examination without abnormal findings (principal) ==

== ENCOUNTER → 2021-02-18 08:20 | Outpatient (CLI) | payer OTHER, SELFPAY | PROVIDERS: PCP Internal Medicine Adolescent Medicine; Visit Provider Nurse Practitioner | DX: U07.1 COVID-19 (principal) | CPT/HCPCS: C9803; U0003; U0005 ==

== ENCOUNTER → 2021-06-27 12:57 | Outpatient (CLI) | payer BC, SELFPAY ==
--- NOTE | 2021-06-27 13:05 | XR_ITS ---
FINAL REPORT CLINICAL HISTORY: left knee pain COMPARISON: September 22, 2019 FINDINGS: LEFT KNEE Three views were obtained. There is no acute fracture or dislocation. There are [id number] degenerative changes with greatest at the medial compartment. The medial compartment narrowing has increased compared to prior. A small joint effusion is noted. No soft tissue abnormality is identified. IMPRESSION: Mild to moderate degenerative changes. Reviewed, Interpreted and Dictated by Skip Almanza III, MD Transcribed by Maricel Kendall Authenticated by Skip Almanza III, MD on 06/27/2021 01:58:[address] [facility]
== END ==
LOC: RAD 13:00
PROVIDERS: PCP Internal Medicine Adolescent Medicine; Visit Provider Orthopaedic Surgery
DX: M25.562 Pain in left knee (principal)
CPT/HCPCS: 73564

== ENCOUNTER → 2021-08-30 11:33 | Outpatient (CLI) | payer BC, SELFPAY ==
--- NOTE | 2021-08-30 11:43 | XR_ITS ---
PROCEDURE INFORMATION: Exam: XR Right Hand Exam date and time: 08/30/2021 11:51 AM Age: 51 years old Clinical indication: Pain; Hand; Right TECHNIQUE: Imaging protocol: Radiologic exam of the Right hand. Views: 3 or more views. COMPARISON: CR HANDR3 HAND-RT 3 VIEWS 01/08/2017 5:52 PM FINDINGS: Bones/joints: No evidence of acute displaced cortical disruption or dislocation is identified. There is osteophytosis and eburnation of the articulating surfaces, most severe at the junction of the greater multangular and the 1st metacarpal, the 1st metacarpophalangeal articulation and the distal interphalangeal articulation of the index finger. There is remodeling of the distal interphalangeal articulation due to remote fracture as demonstrated January 08, 2017. Remodeling of the 5th metacarpal appears to be due to remote fracture. Remodeling of the distal aspect of the middle phalanx of the 4th finger is likely due to remote injury with underlying nonaggressive neoplasm such as enchondroma to be excluded. Soft tissues: No radiopaque foreign object or localized soft tissue swelling. IMPRESSION: 1. No evidence of acute displaced cortical disruption or dislocation is identified. 2. Osteoarthritis, most severe at the junction of the greater multangular and the 1st metacarpal, the 1st metacarpophalangeal articulation and the distal interphalangeal articulation of the index finger. 3. Remodeling of the distal interphalangeal articulation due to remote fracture as demonstrated January 08, 2017. 4. Remodeling of the 5th metacarpal appears to be due to remote fracture. 5. Remodeling of the distal aspect of the middle phalanx of the 4th finger is likely due to remote injury with underlying nonaggressive neoplasm such as enchondroma to be excluded.
[2021-08-30 12:02] LABS: Uric Acid 5.3 mg/dl (3.5-8.5)
[2021-08-30 12:07] LABS: C-Reactive Protein 4.8 mg/L (0-4)
[2021-08-30 12:12] LABS: Erythrocyte Sedimentation Rate 14 mm/hr (0-15)
[2021-08-31 11:02] LABS: RA Latex Turbid. <10.0 IU/mL (<14.0)
[2021-09-03 01:08] LABS: Anti-Cyclic Citrullinated Pept 7 units (0-19)
== END ==
LOC: RAD 11:34
PROVIDERS: PCP Internal Medicine Adolescent Medicine; Visit Provider Nurse Practitioner Family
DX: M79.641 Pain in right hand (principal)
CPT/HCPCS: 36415; 73130; 84550; 85651; 86038; 86140; 86200; 86431

== ENCOUNTER → 2021-10-03 10:50 | Outpatient (CLI) | payer BC, SELFPAY ==
--- NOTE | 2021-10-03 10:51 | CA_ITS ---
FINAL REPORT CLINICAL HISTORY: Calf pain lle. Patient states he got a nerve block in LLE in 2019. States his leg has throbbed ever since. He is on his legs A lot at work and it feels like his left calf is going to blow up it feels so tight. Denies trauma. States he gets knee injections in [place] with the last being in August FINDINGS: DUPLEX VENOUS SONOGRAPHY OF THE LEFT LOWER EXTREMITY Multiple transverse and longitudinal scans were performed of the femoropopliteal deep venous system, with augmentation and compression maneuvers. FINDINGS: Normal phasic flow was noted in the visualized deep venous system. No intraluminal increased echogenicity is noted to suggest thrombus. There is normal compression and augmentation of the venous structures. No abnormal venous collaterals are seen. IMPRESSION: No evidence of deep venous thrombosis of the left lower extremity. Reviewed, Interpreted and Dictated by Emely Calderon MD Transcribed by Julius iNelson Authenticated and [facility]
--- NOTE | 2021-10-03 11:29 | XR_ITS ---
FINAL REPORT CLINICAL HISTORY: knee pain COMPARISON: 06/27/2021 FINDINGS: AP, lateral and oblique views of the left knee were obtained. There is no acute osseous abnormality of the left knee. There is degenerative joint disease which is stable. The soft tissues are normal. There is no joint effusion. IMPRESSION: No acute osseous abnormality of the left knee. Degenerative joint disease, stable. Reviewed, Interpreted and Dictated by Emely Calderon MD Transcribed by Yandy Zepeda Authenticated and [facility]
[2021-10-03 11:51] LABS: Basophils # 0.1 K/mm3 (0-0.2); Basophils % 1.5 % (0.1-2.0); Eosinophils # 0.6 K/mm3 (0.0-0.4); Hematocrit 42.4 % (42.0-52.0); Hemoglobin 13.6 g/dL (14.1-18.0); Lymphocytes # 2.3 K/mm3 (0.7-4.5); Mean Corpuscular HGB Conc 32.1 g/dL (31.8-35.4); Mean Corpuscular Hemoglobin 31.6 pg (27.0-31.2); Mean Corpuscular Volume 98.6 fl (80-94); Mean Platelet Volume 7.1 fl (7.4-10.4); Monocytes # 0.4 K/mm3 (0.1-1.0); Monocytes % 4.7 % (1.7-9.3); Neutrophils # 5.1 K/mm3 (1.8-7.8); Neutrophils % 59.7 % (37.0-80.0); Platelet Count 327 K/mm3 (142-424); Red Cell Distribution Width 13.2 % (11.5-17.5); White Blood Count 8.6 K/mm3 (4.8-10.8)
[2021-10-03 12:21] LABS: Erythrocyte Sedimentation Rate 18 mm/hr (0-15)
== END ==
LOC: LAB 10:51
PROVIDERS: PCP Internal Medicine Adolescent Medicine; Visit Provider Orthopaedic Surgery
DX: M17.12 Unilateral primary osteoarthritis, left knee (principal)
CPT/HCPCS: 36415; 73562; 85025; 85651; 86140; 93971

== ENCOUNTER → 2021-10-17 09:30 | Outpatient (CLI) | payer BC, SELFPAY ==
--- NOTE | 2021-10-17 09:32 | MR_ITS ---
FINAL REPORT CLINICAL HISTORY: back pain. BILATERAL LEG TINGLING AND NUMBNESS. SYMPTOMS XYEARS. LEFT KNEE PAIN. FINDINGS: MRI LUMBAR SPINE W/O CONTRAST Multiplanar MR imaging of the lumbar spine was performed without contrast. On the sagittal T2-weighted images, disc degeneration is seen throughout. There are endplate changes at several levels, greatest at L4-5. There are Schmorl's nodes at several levels. There is leftward curvature. The vertebral alignment is normal. There is no evidence of fracture. The conus has an unremarkable appearance. T11-12: An annular disc bulge is present with mild right neural foraminal narrowing. T12-L1: An annular disc bulge is present. L1-2: There is an annular disc bulge with facet arthropathy and vertebral osteophytes. There is mild right neural foraminal narrowing. L2-3: There is an annular disc bulge with facet arthropathy and moderate bilateral neural foraminal narrowing. L3-4: There is an annular disc bulge with facet arthropathy. There is a right foraminal disc protrusion with right L4 nerve root impingement. There is moderate right and mild left neural foraminal narrowing. L4-5: There is an annular disc bulge with facet arthropathy and vertebral osteophytes. There is moderate right and severe left neural foraminal narrowing. L5-S1: An annular disc bulge is present with mild bilateral neural foraminal narrowing. There is spurring of the SI joint. IMPRESSION: Multilevel disc degeneration and spondylosis with areas of neural foraminal narrowing which is worse on the left at L4-5. L3-4 right foraminal disc protrusion with right L4 nerve root impingement. Reviewed, Interpreted and Dictated by Skip Almanza III, MD Transcribed by Yandy Zepeda Authenticated and [facility]
== END ==
LOC: RAD 09:30
PROVIDERS: PCP Internal Medicine Adolescent Medicine; Visit Provider Orthopaedic Surgery
DX: M51.36 Other intervertebral disc degeneration, lumbar region (principal); M54.50 Low back pain, unspecified
CPT/HCPCS: 72148; 76376

== ENCOUNTER → 2022-06-26 15:48 | Outpatient (CLI) | payer BC, SELFPAY ==
[2022-06-26 16:12] LABS: Basophils # 0.1 K/mm3 (0-0.2); Basophils % 1.1 % (0.1-2.0); Eosinophils # 0.4 K/mm3 (0.0-0.4); Eosinophils % 4.9 % (0.1-12.0); Hematocrit 44.4 % (42.0-52.0); Hemoglobin 14.5 g/dL (14.1-18.0); Lymphocytes # 2.3 K/mm3 (0.7-4.5); Lymphocytes % 28.1 % (10-50); Mean Corpuscular HGB Conc 32.8 g/dL (31.8-35.4); Mean Corpuscular Hemoglobin 30.8 pg (27.0-31.2); Mean Corpuscular Volume 93.9 fl (80-94); Mean Platelet Volume 7.3 fl (7.4-10.4); Monocytes # 0.4 K/mm3 (0.1-1.0); Monocytes % 4.8 % (1.7-9.3); Neutrophils % 61.2 % (37.0-80.0); Platelet Count 284 K/mm3 (142-424); Red Blood Count 4.72 M/mm3 (4.60-6.20); Red Cell Distribution Width 13.1 % (11.5-17.5); White Blood Count 8.2 K/mm3 (4.8-10.8)
[2022-06-26 16:37] LABS: Alanine Aminotransferase 18 U/L (12-78); Albumin Level 4.2 g/dl (3.5-5.0); Albumin/Globulin Ratio 1.6 (1.1-1.8); Alkaline Phosphatase 103 U/L (38-126); Anion Gap 11.8 mEq/L (5-15); Aspartate Amino Transferase 22 U/L (17-59); Bilirubin,Total 0.4 mg/dl (0.2-1.3); Blood Urea Nitrogen 13 mg/dl (9-20); Calcium 8.8 mg/dl (8.4-10.2); Carbon Dioxide 30 mmol/L (22.0-30.0); Chloride 100 mmol/L (98-107); Estimated Glomerular Filt Rate 89 ml/min (>60); GFR (African American) 108 ML/MIN (>60); Globulin 2.7 g/dL (1.3-3.2); Glucose 78 mg/dl (74-100); Potassium 3.8 mmoL/L (3.5-5.1); Sodium 138 mmol/L (136-145); Total Protein,Serum 6.9 g/dl (6.3-8.2)
[2022-06-26 16:38] LABS: Hemoglobin A1C 5.6 % (4.0-6.0)
[2022-06-26 17:08] LABS: Thyroid Stimulating Hormone 1.47 uIU/mL (0.465-4.68)
== END ==
LOC: LAB 15:49
PROVIDERS: PCP Internal Medicine Adolescent Medicine; Visit Provider Nurse Practitioner Family
DX: R63.5 Abnormal weight gain (principal)
CPT/HCPCS: 36415; 80053; 83036; 84443; 85025

== ENCOUNTER 2024-01-10 11:00 | Outpatient (RCR) | payer BC, SELFPAY | END 2024-01-10 23:59 | disposition home or self-care (01) | LOC: OT 11:00 | PROVIDERS: Visit Provider Orthopaedic Surgery Hand Surgery | DX: M19.041 Primary osteoarthritis, right hand (principal); M79.644 Pain in right finger(s) | CPT/HCPCS: 97014; 97018; 97110; 97140; 97165; 97168; G0283 ==

== ENCOUNTER 2024-08-22 16:57 | Outpatient (CLI) | payer BC, SELFPAY ==
--- OUTSIDE RECORDS SUMMARY | 2024-08-22 16:59 | XMS_ITS | Clinical Summary ---
Author Organization [facility] Address [address] [place] [address] Care Team Providers Care Cook Fruit Name Role Phone Patricio Burgos MD Primary Care Provider [phone] Allergies Active Allergy Reactions Criticality Noted Date Comments Bupropion Hives Medium 09/25/2020 Medications diazePAM (Valium) 10 MG tablet 09/07/2020 Active acetaminophen-code ine (Tylenol #3) 300-30 MG tablet 09/10/2020 Ac tive Active Problems Problem Noted Date Diagnosed Date Primary osteoarthritis of one knee, left 021 Social History Tobacco Use Types Packs/Day Years Used Date Smoking Tobacco: Never Smokeless Tobacco: Never Sex and Gender Information Value Date Recorded Sex Assigned at Male 09/25/2020 10:00 AM EDT Legal Sex Male 12:09 PM EDT Gender Identity Male 09/25/2020 10:00 AM EDT Sexual Orientation Straight 09/25/2020 10 :00 AM EDT Last Filed Vital Signs Vital Sign Reading Time Taken Comments Blood Pressure 146/90 12/25/2020 8:09 AM EDT Pulse 89 12/25/2020 8:09 AM EDT Temperature - - Respiratory Rate - - Oxygen Saturation 96% 12/25/2020 8:09 AM EDT Inhaled Oxygen Concentration - - Weight 99.8 kg (220 lb) 04/02/2023 7:00 AM EST Height 182.9 cm (6') 04/02/2023 7:00 AM EST Body Mass Index 29.84 04/02/2023 7:00 AM EST Plan of Treatment Health Maintenance Due Date Last Done Comments [facility]-Depression Screening 1971 [facility]-Infant/Child/Adol SDOH Screenings 1971 [facility]- SDOH Screenings 06/10/1989 [facility]-Adult SDOH Screenings 06/10/1989 [facility]-DTaP,Tdap,and Td Vaccine s (1 - Tdap) 06/10/1990 [facility]-Hepatitis B Vaccines (1 of 3 - 19+ 3-dose series) 06/10/1990 CT Colonography 06/10/2016 Colonoscopy 06/10/2016 FIT-DNA 06/10/2016 FIT 06/10/2016 FOBT 06/10/2016 Sigmoidoscopy 06/10/2016 [facility]-Colorectal Cancer Screening 06/10/2016 [facility]-Pneumococcal Vaccine: 50 + Years (1 of 1 - PCV) 06/10/2021 [facility]-Zoster Vaccines (1 of 2) 06/10/2021 [id number] Vaccine (1 - 20 24-25 season) 2023 [facility]-Influenza Vaccine ([place] n Ended) 2024 HPV Vaccines Aged Out No longer eligi ble based on patient's age to complete this topic [facility]-HIB Vaccines Aged Out No longer e ligible based on patient's age to complete this topic [facility]-Hepatitis A Vaccines Aged Out No longer eligible based on patient's age to complete this topic [facility]-IPV Vaccines Aged Out No longer e ligible based on patient's age to complete this topic [facility]-Rotavirus Vaccines Aged Out No lo nger eligible based on patient's age to complete this topic Insurance ANTH Care Teams Cook Fruit Relationship Specialty Start Date End Date Patricio Burgos MD [address] [place] [address] [place], [place] [address] PCP - General 09/25/20
--- OUTSIDE RECORDS SUMMARY | 2024-08-22 16:59 | XMS_ITS ---
Author Organization [facility] Address [address] [id number] Care Team Providers Care Cream Ripener Name Role Phone Patricio Burgos MD Primary Care Provider [phone] Transplant Episode Kidney Potential Donor [facility] ([place], [place]) [facility] Referred on 04/02/2023 Marked as Internal Hold on 04/14/2023 Reason: Unable to Contact Patient Kidney CoordinatorCristhian Cruz RN Fax: N/A Email: N/A Care Team Name Role Phone Fax Email Cristhian Cruz RN Kidney Coordinator [phone] N/A N/A Events Pre-Donation Referred: 04/02/2023 Committee: 04/06/2023
--- NOTE | 2024-08-22 17:14 | XR_ITS ---
PROCEDURE INFORMATION: Exam: XR Left Foot Exam date and time: 08/22/2024 5:14 PM Age: 54 years old Clinical indication: Pain; Foot; Left; Additional info: Left foot pain and swelling TECHNIQUE: Imaging protocol: Radiologic exam of the left foot. Views: 3 or more views. COMPARISON: CR XR KNEE LT 3V 10/03/2021 11:31 AM FINDINGS: Bones/joints: Normal. Soft tissues: Normal. IMPRESSION: No acute findings.
== END 2024-08-22 23:59 | disposition home or self-care (01) ==
LOC: RAD 16:58
PROVIDERS: PCP Internal Medicine Adolescent Medicine; Visit Provider Physician Assistant
DX: M79.672 Pain in left foot (principal)
CPT/HCPCS: 73630

== ENCOUNTER 2024-11-05 16:11 | Emergency (ER) | payer BC, SELFPAY ==
--- NOTE | 2024-11-05 16:25 | XR_ITS ---
PROCEDURE INFORMATION: Exam: XR Left Shoulder Exam date and time: 11/05/2024 4:32 PM Age: 54 years old Clinical indication: Injury or trauma; Fall; Blunt trauma (contusions or hematomas); Shoulder; Left; Additional info: Fall, left shoulder pain decreased rom TECHNIQUE: Imaging protocol: Radiologic exam of the left shoulder. Views: 2 or more views. Total images: 3 COMPARISON: CR Humerus L 11/05/2024 4:31 PM FINDINGS: Bones/joints: No evidence of acute fracture or dislocation. Soft tissues: Soft tissues are within normal limits. IMPRESSION: No evidence of acute fracture or dislocation.
--- NOTE | 2024-11-05 16:28 | XR_ITS ---
PROCEDURE INFORMATION: Exam: XR Left Humerus Exam date and time: 11/05/2024 4:31 PM Age: 54 years old Clinical indication: Injury or trauma; Fall; Blunt trauma (contusions or hematomas); Arm, upper; Left; Additional info: Fall left arm pain TECHNIQUE: Imaging protocol: Radiologic exam of the left humerus. Views: 2 or more views. Total images: 3 COMPARISON: CR XR HUMERUS LT 11/05/2024 4:31 PM FINDINGS: Bones/joints: No evidence of acute fracture or dislocation. Soft tissues: Soft tissues are within normal limits. IMPRESSION: No evidence of acute fracture or dislocation.
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
[2024-11-05 16:31] VITALS: BP 123/96; PULSE 108; O2SAT 97
--- OUTSIDE RECORDS SUMMARY | 2024-11-05 16:34 | XMS_ITS | Clinical Summary ---
Author Organization [facility] Address [address] [place] [address] Care Team Providers Care Network Admin Name Role Phone Patricio Burgos MD Primary Care Provider [phone] Allergies Active Allergy Reactions Criticality Noted Date [...] Date Last Done Comments [facility]-Depression Screening 1971 [facility]-/Child/Adol SDOH Screenings 1971 [facility]- SDOH Screenings 06/10/1989 [...] 06/10/2021 [facility]-Zoster Vaccines (1 of 2) 06/10/2021 [id number] Vaccine (1 - 20 24-25 season) 2023 [facility]-Influenza Vaccine (#1) 2024 HPV Vaccines Aged Out No longer [...] complete this topic Insurance ANTH Care Teams Network Admin Relationship Specialty Start Date End Date Patricio Burgos MD [address] [place], [place] [address] PCP - General 09/25/20
--- OUTSIDE RECORDS SUMMARY | 2024-11-05 16:34 | XMS_ITS ---
Author Organization [facility] Address [address] [id number] Care Team Providers Care Critical Care Unit Manager Name Role Phone Patricio Burgos MD Primary Care Provider [phone] Transplant Episode Kidney Potential Donor [facility] ([place], [place]) [facility] Referred on 04/02/2023 Marked as Internal Hold on 04/14/2023 Reason: Unable to Contact Patient Kidney CoordinatorCristhian Cruz RN Fax: N/A Email: N/A Care Team Name Role Phone Fax Email Cristhian Cruz RN Kidney Coordinator [phone] N/A N/A Events Pre-Donation Referred: 04/02/2023 Committee: 04/06/2023
[2024-11-05 16:35] VITALS: BP 127/92; PULSE 93; RESP 15; TEMP 36.7; O2SAT 96; BMI 27.9
[2024-11-05] MEDS: IBUPROFEN 600 MG TABLET PO (16:50)
[2024-11-05 17:29] VITALS: BP 126/94; PULSE 75; RESP 16; TEMP 36.7; O2SAT 99
== END 2024-11-05 17:40 | disposition home or self-care (01) ==
PROVIDERS: Emergency Provider Student in an Organized Health Care Education/Training Program; PCP Internal Medicine Adolescent Medicine
DX: M25.512 Pain in left shoulder (principal); W19.XXXA Unspecified fall, initial encounter
CPT/HCPCS: 73030; 73060; 99282; 99283

== ENCOUNTER 2024-11-09 14:46 | Outpatient (CLI) | payer BC, SELFPAY ==
--- NOTE | 2024-11-09 14:49 | XR_ITS ---
FINAL REPORT CLINICAL HISTORY: right shoulder pain, nki FINDINGS: Right shoulder Three views were obtained. There is no fracture or dislocation. There are mild hypertrophic changes at the AC joint. The glenohumeral joint is intact. No soft tissue abnormality is identified. IMPRESSION: Mild hypertrophic changes at the AC joint. Reviewed, Interpreted and Dictated by Tejas Dee MD Transcribed by Maricel Kendall Authenticated and [facility]
--- OUTSIDE RECORDS SUMMARY | 2024-11-09 14:49 | XMS_ITS | Clinical Summary ---
Author Organization [facility] Address [address] [place] [address] Care Team Providers Care Packing Attendant Name Role Phone Patricio Burgos MD Primary Care Provider [phone] Allergies Active Allergy Reactions Criticality Noted Date [...] 06/10/2021 [facility]-Zoster Vaccines (1 of 2) 06/10/2021 [id number] Vaccine (1 - 20 24-25 season) 2023 [...] complete this topic Insurance ANTH Care Teams Packing Attendant Relationship Specialty Start Date End Date Patricio Burgos MD [address] [place], [place] [address] PCP - General 09/25/20
--- OUTSIDE RECORDS SUMMARY | 2024-11-09 14:49 | XMS_ITS ---
Author Organization [facility] Address [address] [id number] Care Team Providers Care Line Closer Name Role Phone Patricio Burgos MD Primary Care Provider [phone] Transplant Episode Kidney Potential Donor [facility] ([place], [place]) [facility] Referred on 04/02/2023 Marked as Internal Hold on 04/14/2023 Reason: Unable to Contact Patient Kidney CoordinatorCristhian Cruz RN Fax: N/A Email: N/A Care Team Name Role Phone Fax Email Cristhian Cruz RN Kidney Coordinator [phone] N/A N/A Events Pre-Donation Referred: 04/02/2023 Committee: 04/06/2023
== END 2024-11-09 23:59 | disposition home or self-care (01) ==
LOC: RAD 14:47
PROVIDERS: PCP Internal Medicine Adolescent Medicine; Visit Provider Physician Assistant Surgical
DX: M19.011 Primary osteoarthritis, right shoulder (principal)
CPT/HCPCS: 73030